=== PATIENT | male | born 2005 | race African-American/Black ===

== ENCOUNTER 2023-07-11 19:36 | Inpatient (IN) | payer MEDICAID, OTHER ==
[~2023-07-11] VITALS: Ht 172.7 cm; Wt 76.1 kg
[2023-07-11 20:21] LABS: COVID AG,FIA SOURCE NASAL SWAB
[2023-07-11 20:42] LABS: BASOPHILS % (AUTO) 0.5 % (0.0-2.0); EOSINOPHILS % (AUTO) 2.3 % (1.0-6.0); HEMATOCRIT 42.5 % (41-53); HEMOGLOBIN 13.7 g/dL (13.5-17.5); LYMPHOCYTES # (AUTO) 1.8 K/uL (1.0-4.8); LYMPHOCYTES % (AUTO) 13.9 % (22.0-44.0); MEAN CORPUSCULAR HEMOGLOBIN 26.6 pg (26.0-34.0); MEAN CORPUSCULAR HGB CONC 32.2 G/dL (31.0-37.0); MEAN CORPUSCULAR VOLUME 83 fL (80-100); MONOCYTES # (AUTO) 0.7 K/uL (0.1-1.0); MONOCYTES % (AUTO) 5.7 % (2.0-9.0); NEUTROPHILS # (AUTO) 10.1 K/uL (1.8-7.7); NEUTROPHILS % (AUTO) 77.6 % (40.0-70.0); PLATELET COUNT (AUTO) 256 K/uL (150-450); RED BLOOD CELL COUNT(AUTO) 5.15 MIL/uL (4.50-5.90); RED CELL DISTRIBUTION WIDTH 14.8 % (11.5-14.5)
[2023-07-11 20:53] LABS: SARS-COV2 (COVID) ANTIGEN,FIA Negative (Negative)
[2023-07-11 20:54] LABS: PH,URINE DRUG SCREEN 6.5 (5.0-8.0)
[2023-07-11 20:57] LABS: ANION GAP 10 mmol/L (8-16); CALCIUM, TOTAL 9.6 mg/dL (8.8-10.5); CARBON DIOXIDE 25 mmol/L (22-29); CHLORIDE 104 mmol/L (98-107); CREATININE 0.89 mg/dL (0.60-1.30); GLOMERULAR FILTR. RATE CALC > 60 mL/min (>60); GLUCOSE,RANDOM 113 mg/dL (70-110); POTASSIUM 3.4 mmol/L (3.5-5.1); SODIUM SERUM 139 mmol/L (136-145); UREA NITROGEN, BLOOD 13 mg/dL (7-18)
[2023-07-11 20:57] LABS: ALCOHOL, URINE DRUG SCREEN NEGATIVE (NEGATIVE); AMPHET/METH SCREEN,URINE NEGATIVE (NEGATIVE); BARBITURATE SCREEN, URINE NEGATIVE (NEGATIVE); BENZODIAZEPINES SCREEN,URINE NEGATIVE (NEGATIVE); CANNABINOID SCREEN,URINE NEGATIVE (NEGATIVE); COCAINE SCREEN,URINE NEGATIVE (NEGATIVE); METHADONE SCREEN, URINE NEGATIVE (NEGATIVE); OPIATE SCREEN,URINE NEGATIVE (NEGATIVE); PHENCYCLIDINE SCREEN,URINE NEGATIVE (NEGATIVE)
[2023-07-11 21:01] LABS: ALANINE AMINOTRANSFERASE 39 U/L (12-78); ALBUMIN 4.2 g/dL (3.4-5.0); ALKALINE PHOSPHATASE 98 U/L (46-116); ASPARTATE AMINOTRANSFERASE 25 U/L (15-37); BILIRUBIN,TOTAL 0.5 mg/dL (0.1-1.0); TOTAL PROTEIN, SERUM 7.3 g/dL (6.4-8.2)
[2023-07-11 21:02] LABS: ALCOHOL, BLOOD (SERUM) < 3 mg/dL (0-10)
[2023-07-11] MEDS ORDERED: POTASSIUM CHLORIDE 10% 40 MEQ/30 ML LIQUID UDCUP PO ONE (22:45)
[2023-07-11] MEDS ORDERED: ZOLPIDEM TARTRATE 10 MG TABLET PO PRN (23:00)
[2023-07-11] MEDS: HALOPERIDOL 5 MG TABLET PO PRN (23:35)
[2023-07-11] MEDS: LORazepam 2 MG TABLET PO PRN (23:35)
[2023-07-12 02:07] VITALS: BP 124/75; PULSE 68; RESP 18; TEMP 98.7; O2SAT 97
[2023-07-12] MEDS ORDERED: ACETAMINOPHEN 325 MG TABLET PO PRN (05:15)
[2023-07-12] MEDS ORDERED: DOCUSATE SODIUM 100 MG CAPSULE PO PRN (05:15)
[2023-07-12] MEDS ORDERED: MAGNESIUM HYDROXIDE SUSPENSION 30 ML UDCUP PO PRN (05:15)
[2023-07-12] MEDS ORDERED: MAG HYDROX/ALUMINUM HYD/SIMETH ES 30 ML SUSPENSION UDCUP PO PRN (05:15)
[2023-07-12] MEDS ORDERED: OMEPRAZOLE 20 MG CAPSULE PO PRN (05:15)
[2023-07-12] MEDS ORDERED: CloNIDine HCL 0.1 MG TABLET PO PRN (05:15)
[2023-07-12] MEDS ORDERED: BENZOCAINE/MENTHOL LOZENGE PO PRN (05:15)
[2023-07-12] MEDS ORDERED: IBUPROFEN 600 MG TABLET PO PRN (05:15)
[2023-07-12] MEDS ORDERED: ALBUTEROL SULFATE HFA 90 MCG/PUFF 8 GM INHALER IH PRN (05:15)
[2023-07-12] MEDS ORDERED: PETROLATUM,WHITE 28 GM JELLY TP PRN (05:15)
[2023-07-12] MEDS ORDERED: LOPERAMIDE HCL 2 MG CAPSULE PO PRN (05:15)
[2023-07-12] MEDS ORDERED: ONDANSETRON HCL 4 MG TABLET PO PRN (05:15)
[2023-07-12] MEDS ORDERED: BACITRACIN 28 GM OINTMENT TP PRN (05:15)
[2023-07-12 08:38] VITALS: BP 136/82; PULSE 74; RESP 18; TEMP 98.2; O2SAT 99
[2023-07-12 20:34] VITALS: BP 145/79; PULSE 78; RESP 18; TEMP 97.7; O2SAT 98
[2023-07-12] MEDS: HALOPERIDOL 5 MG TABLET PO PRN (20:41)
[2023-07-12] MEDS: LORazepam 2 MG TABLET PO PRN (20:42)
[2023-07-13 08:10] VITALS: BP 139/84; PULSE 92; RESP 17; TEMP 98; O2SAT 98
[2023-07-13 08:58] LABS: POTASSIUM 3.8 mmol/L (3.5-5.1)
[2023-07-13] MEDS: LITHIUM CARBONATE 300 MG CAPSULE PO SCH ×2 (10:26→18:17)
[2023-07-13] MEDS: DIVALPROEX SODIUM 500 MG DR TABLET PO SCH ×2 (10:26→18:17)
[2023-07-13 20:18] VITALS: RESP 18
[2023-07-13] MEDS: OLANZapine 10 MG TABLET PO SCH (20:59)
[2023-07-14] MEDS: DIVALPROEX SODIUM 500 MG DR TABLET PO SCH ×2 (08:05→16:12)
[2023-07-14] MEDS: LITHIUM CARBONATE 300 MG CAPSULE PO SCH ×2 (08:05→16:12)
[2023-07-14 08:31] VITALS: BP 144/83; PULSE 90; TEMP 97.9; O2SAT 100
[2023-07-14 20:27] VITALS: BP 130/80; PULSE 83; RESP 19; TEMP 98.1; O2SAT 98
[2023-07-14] MEDS: OLANZapine 10 MG TABLET PO SCH (21:11)
[2023-07-15] MEDS: LITHIUM CARBONATE 300 MG CAPSULE PO SCH (07:56)
[2023-07-15] MEDS: DIVALPROEX SODIUM 500 MG DR TABLET PO SCH (07:56)
[2023-07-15 09:04] VITALS: BP 140/80; PULSE 75; RESP 18; TEMP 97; O2SAT 98
[2023-07-15] MEDS ORDERED: LITH300C3 PO (09:59)
[2023-07-15] MEDS ORDERED: DIVA-112 PO (10:01)
[2023-07-15] MEDS ORDERED: OLAN10TA74 PO (10:03)
== END 2023-07-15 14:33 | disposition home or self-care (01) | DRG 750 ==
LOC: EMS 19:37 → UNDOADMIN 23:13 → 3EC 23:13
PROVIDERS: ADMIT Psychiatry & Neurology Psychiatry; ATTEND Psychiatry & Neurology Psychiatry
DX: F25.9 Schizoaffective disorder, unspecified (principal); R45.851 Suicidal ideations; F29 Unspecified psychosis not due to a substance or known physiological condition; E87.6 Hypokalemia; G47.00 Insomnia, unspecified; F41.9 Anxiety disorder, unspecified; K59.00 Constipation, unspecified; F32.A Depression, unspecified; Z20.822 Contact with and (suspected) exposure to COVID-19; S60.811A Abrasion of right wrist, initial encounter; X58.XXXA Exposure to other specified factors, initial encounter; Y93.89 Activity, other specified; Y92.89 Other specified places as the place of occurrence of the external cause; Y99.8 Other external cause status
CPT/HCPCS: 80053; 80307; 84132; 84295; 85025; 99285; G0480

== ENCOUNTER 2025-02-07 19:21 | Inpatient (IN) | payer MEDICARE, MEDICAID ==
[~2025-02-07] VITALS: Ht 175.3 cm; Wt 70.1 kg
[~2025-02-07 19:21] MED LIST: DIVA-112 PO; LITH300C3 PO; OLAN10TA74 PO
[2025-02-07 19:57] LABS: PLATELET COUNT (AUTO) 247 K/uL (150-450); RED BLOOD CELL COUNT(AUTO) 5.32 MIL/uL (4.50-5.90); RED CELL DISTRIBUTION WIDTH 14.1 % (11.5-14.5); WHITE BLOOD COUNT (AUTO) 7.2 K/uL (4.5-11.0)
[2025-02-07 20:04] LABS: CALCIUM, TOTAL 9.0 mg/dL (8.8-10.5); CREATININE 1.19 mg/dL (0.60-1.30); GLOMERULAR FILTR. RATE CALC > 60 mL/min (>60); GLUCOSE,RANDOM 124 mg/dL (70-110); SODIUM SERUM 142 mmol/L (136-145); UREA NITROGEN, BLOOD 14 mg/dL (7-18)
[2025-02-07 20:08] LABS: COVID AG,FIA SOURCE NASAL SWAB
[2025-02-07 20:34] LABS: SARS-COV2 (COVID) ANTIGEN,FIA Negative (Negative)
[2025-02-07] MEDS: POTASSIUM CHLORIDE 20 MEQ ER TABLET PO ONE (20:52)
[2025-02-08] MEDS ORDERED: ZOLPIDEM TARTRATE 10 MG TABLET PO PRN
[2025-02-08 01:35] VITALS: O2SAT 100
[2025-02-08 03:36] VITALS: BP 136/81; PULSE 64; RESP 20; TEMP 98.5; O2SAT 96
[2025-02-08] MEDS ORDERED: BACITRACIN 28 GM OINTMENT TP PRN (05:30)
[2025-02-08] MEDS ORDERED: OMEPRAZOLE 20 MG CAPSULE PO PRN (05:30)
[2025-02-08] MEDS ORDERED: ACETAMINOPHEN 325 MG TABLET PO PRN (05:30)
[2025-02-08] MEDS ORDERED: LOPERAMIDE HCL 2 MG CAPSULE PO PRN (05:30)
[2025-02-08] MEDS ORDERED: DOCUSATE SODIUM 100 MG CAPSULE PO PRN (05:30)
[2025-02-08] MEDS ORDERED: IBUPROFEN 600 MG TABLET PO PRN (05:30)
[2025-02-08] MEDS ORDERED: BENZOCAINE/MENTHOL [CEPACOL] LOZENGE PO PRN (05:30)
[2025-02-08] MEDS ORDERED: PETROLATUM,WHITE 28 GM JELLY TP PRN (05:30)
[2025-02-08] MEDS ORDERED: ALBUTEROL SULFATE HFA 90 MCG/PUFF 8 GM INHALER IH PRN (05:30)
[2025-02-08 08:29] VITALS: BP 144/94; PULSE 67; RESP 18; TEMP 98.2; O2SAT 98
[2025-02-08] MEDS: MAGNESIUM HYDROXIDE SUSPENSION 30 ML UDCUP PO PRN (09:59)
[2025-02-08] MEDS: LITHIUM CARBONATE 300 MG CAPSULE PO SCH (17:06)
[2025-02-08] MEDS: DIVALPROEX SODIUM 500 MG DR TABLET PO SCH (17:06)
[2025-02-08 20:25] VITALS: BP 136/88; PULSE 98; RESP 18; TEMP 97.8; O2SAT 100
[2025-02-09 08:19] VITALS: BP 130/80; PULSE 71; RESP 16; TEMP 99; O2SAT 99
[2025-02-09 08:32] LABS: APPEARANCE,URINE CLEAR (CLEAR); GLUCOSE, URINE (UA) NEGATIVE (NEGATIVE); LEUKOCYTE ESTERASE ,URINE NEGATIVE (NEGATIVE); NITRATE,URINE NEGATIVE (NEGATIVE); OCCULT BLOOD,URINE NEGATIVE (NEGATIVE); PH,URINE DRUG SCREEN 8.0 (5.0-8.0); SPECIFIC GRAVITIY, URINE 1.015 (1.003-1.030)
[2025-02-09 08:39] LABS: ALCOHOL, URINE DRUG SCREEN NEGATIVE (NEGATIVE); AMPHET/METH SCREEN,URINE NEGATIVE (NEGATIVE); BARBITURATE SCREEN, URINE NEGATIVE (NEGATIVE); CANNABINOID SCREEN,URINE NEGATIVE (NEGATIVE); COCAINE SCREEN,URINE NEGATIVE (NEGATIVE); METHADONE SCREEN, URINE NEGATIVE (NEGATIVE)
[2025-02-09] MEDS: MAG HYDROX/ALUMINUM HYD/SIMETH ES 30 ML SUSPENSION UDCUP PO PRN (16:16)
[2025-02-09 20:30] VITALS: BP 132/75; PULSE 62; RESP 18; TEMP 97.8; O2SAT 98
[2025-02-10 08:34] VITALS: BP 133/84; PULSE 87; RESP 18; TEMP 98.1; O2SAT 98
[2025-02-10] MEDS: ONDANSETRON 4 MG TABLET PO PRN (15:10)
[2025-02-10 20:32] VITALS: BP 141/79; PULSE 69; RESP 17; TEMP 97.6; O2SAT 99
[2025-02-11 08:30] VITALS: BP 124/92; PULSE 92; RESP 19; TEMP 98; O2SAT 96
[2025-02-11] MEDS ORDERED: RISP3TAB77 PO (10:09)
[2025-02-11 13:36] LABS: ASPARTATE AMINOTRANSFERASE 20 U/L (15-37); CALCIUM, TOTAL 9.3 mg/dL (8.8-10.5); CHOL/HDL RATIO 2.9 (4.2-7.3); CREATININE 0.98 mg/dL (0.60-1.30); GLOMERULAR FILTR. RATE CALC > 60 mL/min (>60); GLUCOSE,RANDOM 63 mg/dL (70-110); LDL CHOL (CALC.) 95 mg/dL (0-130); PHOSPHORUS 4.2 mg/dL (2.5-4.9); SODIUM SERUM 140 mmol/L (136-145); TOTAL PROTEIN, SERUM 7.2 g/dL (6.4-8.2); UREA NITROGEN, BLOOD 11 mg/dL (7-18)
== END 2025-02-11 21:12 | disposition home or self-care (01) | DRG 885 ==
LOC: EMS 19:21 → B2S 02-08 01:03 → B2X 02-08 15:00
PROVIDERS: ADMIT Psychiatry & Neurology Psychiatry; ATTEND Psychiatry & Neurology Psychiatry
DX: F25.9 Schizoaffective disorder, unspecified (principal); R45.851 Suicidal ideations; E87.6 Hypokalemia; L30.9 Dermatitis, unspecified; G47.00 Insomnia, unspecified; K59.00 Constipation, unspecified; F41.9 Anxiety disorder, unspecified; F32.A Depression, unspecified; Z20.822 Contact with and (suspected) exposure to COVID-19
CPT/HCPCS: 80048; 80053; 80061; 80307; 81003; 83036; 83735; 84100; 84443; 85025; G0480; Q0162